=== PATIENT | female | born 1965 | race Caucasian/White ===

== ENCOUNTER 2019-04-06 12:30 | Outpatient (RCR) | payer MEDICAID, SELFPAY ==
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
--- NOTE | 2019-04-24 09:10 | HP.PTDCNRP_ITS ---
HP - Discharge Summary (1) - Patient Information DIOGO OTTO was seen in my office for initial evaluation on 04/01/19. The following Plan of Care was established for this patient: Initial Frequency: 2-3x /Week Initial Duration: 4-6 Weeks - Anticipated Interventions Patient/Client Instruction: Educate patient on: Condition, Plan of Care, Risk Factors, Benefits of Fitness Program For the Purpose of:: To improve self management Therapeutic Exercise to Include: Strength training, Body mechanics, Postural training, Flexibilty training, In an aquatic setting, Dynamic Lumbar Stabiliza tion For the Purpose of:: To decrease pain, To increase ROM, To improve muscle performance and motor function, To increase tolerance to activity/condition/position, To improve ability of physical actions for home/community/work/leisure This patient was last seen in our office . Pertinent comments regarding their Physical therapy will appear below: This patient has not returned to Physical Therapy and is appropriate to return to MD for further follow-up as needed. At this point I will be discontinuing this patient from physical therapy. I would be happy to see this patient again in the future if found appropriate by the physician. Thank you! Cara Morrison, PT, Cert MDT
== END 2019-04-06 19:00 | disposition home or self-care (01) ==
LOC: PT 12:30
PROVIDERS: Family Provider Family Medicine; PCP Family Medicine; Referring Provider Family Medicine; Visit Provider Family Medicine
DX: M47.817 Spondylosis without myelopathy or radiculopathy, lumbosacral region (principal)
CPT/HCPCS: 97113; 97162; 97530

== ENCOUNTER 2019-07-07 08:50 | Outpatient (RCR) | payer MEDICAID, SELFPAY ==
--- NOTE | 2019-07-07 10:00 | HP.PTEVAL_ITS ---
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 Date of Evaluation: 07/07/19 Physical Therapist: Garcia Ferris, PT, Cert MDT, OCS - Visit Plan Frequency: 2x /Week Duration: 4 Weeks Plan: PT INTERVENTION GRADED ROM/STRENGTH QUADS/HAMS,DLS,POSURAL EX'S ,ENDURANCE PROGRAM,MODALITIES FOR PAIN RELEIVE - Subjective Findings: This 53 y/o female presenst to physical therapy with low back pain and left knee pain. Patient has had back and kness pain for many years. Aggravating factors knee/back walking,stairs,bending,standing,sitting. Unable to squat /kneel and difficultly with stairs. Patient c/o parathesia/tingling left leg . Bowel/bladder-. Coughing/sneezing -. Patient seen DR for knee and is canditate for knee replacement. Symptoms affects sleeping. Patient tried water but unable due to difficulty . Patienthad x-rays. Tried cortizone knee. SOCAIL: seperated. VOCATION: disablity - Pain Bilateral Back Pain Intensity (Out of 10): 8 Pain Intensity Range: 10 Left Knee Pain Intensity (Out of 10): 6 Pain Intensity Range: 10 - Objective POSTURE: mild foward posture,hips/flexed foward. PALAPTION: tender global knee,SI. NEURO: c/o parathesia /tingling left leg ,reflexes L3-4,L4-5,L5-S1. GAIT: ambulates short distance antalgic gait unsteady waddle gait. BALANCE: fair+. STAIRS: difficulty with one rail. MMT: RIGHT 4/5 quads/hams ,LEFT 4- /5,hip flexion right 4-/5,left 3+/5. FLEXABLITY: mod hams flexablity ,piriformis mod. LUMBAR ROM: flexion mod loss,side glides severe left pain ,min right,extension severe loss. AROM: 5-110 supine R,left 5-100 degrees supine flexion - Special Tests L/S Slump test left side: Negative L/S Slump test right side: Negative Lumbar Standing: Flexion - Mechanical Response: No effect Lumbar Standing: Flexion - Symptoms During Testing: Increases Lumbar Standing: Flexion - Symptoms After Testing: Worse Lumbar Standing: Extension - Mechanical Response: No effect Lumbar Standing: Extension - Symptoms During Testing: Increases Lumbar Standing: Extension - Symptoms After Testing: Worse Lumbar Standing: Right Side Glides - Mechanical Response: No effect Lumbar Standing: Right Side [place] - Symptoms During Testing: No effect Lumbar Standing: Right Side [place] - Symptoms After Testing: No effect Lumbar Standing: Left Side [place] - Mechanical Response: No effect Lumbar Standing: Left Side [place] - Symptoms During Testing: Increases Lumbar Standing: Left Side [place] - Symptoms After Testing: Worse - Goals Goal 1:: Independant with HEP Goal Time Frame: 4-6 Weeks Goal 2:: Improve gait with increase distance and QOL of gait with less pain. Goal Time Frame: 4-6 Weeks Goal 3:: Patient decrease L-S and knee left by 40% > to improve function. Goal Time Frame: 4-6 Weeks Goal 4:: Patient to improve lumbar ROM for function of recovery Goal Time Frame: 4-6 Weeks Goal 5:: Patient increase strength quads/hams 4/5 to improve function with gait Goal Time Frame: 4-6 Weeks Goal 6:: Patient to improve back owestry score by 4 points or> to improve QOL. Goal Time Frame: 4-6 Weeks - Rehabilitation Potential Physical Therapy Diagnosis: This patient has L-S pain and left knee pain with poor ROM,strength knee,poor function of recovery and impairs gait short ditances thus benifit from skilled PT Rehabilitation Potential: Good - Anticipated Interventions Patient/Client Instruction: Educate patient on: Condition, Plan of Care For the Purpose of:: To decrease pain, To increase ROM, To improve muscle performance and motor function, To improve ability to perform ADL's, To increase tolerance to activity/condition/position, To improve ability of physical actions for home/community/work/leisure, To improve health of tissue, To decrease soft tissue restriction, To increase flexibility/ROM, To reduce risk of recurrence, To improve ability to perform tasks related to life management Therapeutic Exercise to Include: Strength training, Body mechanics, Postural training, Flexibilty training, Dynamic Lumbar Stabilization Comment: QUADS/HAMS For the Purpose of:: To decrease pain, To increase ROM, To improve muscle performance and motor function, To improve ability to perform ADL's, To improve performance and independence with ADL's, To improve ability of physical actions for home/community/work/leisure, To improve gait and locomotor functions, To improve health of tissue, To decrease soft tissue restriction, To increase flexibility/ROM, To improve ability to perform tasks related to life management TENS: Yes IF ES: Yes Cryotherapy (ice pack, ice massage): Yes Thermo therapy (hot pack): Yes Ultrasound (thermal/non thermal): Yes For the Purpose of:: To decrease pain, To increase ROM, To improve nutrient delivery to tissue, To increase oxygenation perfusion, To improve health of tissue, To decrease soft tissue restriction Thank you for the opportunity to evaluate your patient. For Medicare and Medicare HMO plans, please review the plan of care and approve it. It will need to be FAXED BACK to us at [phone] for Medicare purposes. For Medicare only, by signing this I certify the plan of care. Please let me know if there are questions or concerns regarding this plan of care. Physician Signature: Date:
--- NOTE | 2019-08-27 15:57 | HP.PTDCNRP_ITS ---
HP - Discharge Summary (1) - Patient Information DIOGO OTTO was seen in my office for initial evaluation on 07/07/19. The following Plan of Care was established for this patient: Initial Frequency: 2x /Week Initial Duration: 4 Weeks - Anticipated Interventions Patient/Client Instruction: Educate patient on: Condition, Plan of Care For the Purpose of:: To decrease pain, To increase ROM, To improve muscle per formance and motor function, To improve ability to perform ADL's, To increase tolerance to activity/condition/position, To improve ability of physical actions for home/community/work/leisure, To improve health of tissue, To decrease soft tissue restriction, To increase flexibility/ROM, To reduce risk of recurrence, To improve ability to perform tasks related to life management Therapeutic Exercise to Include: Strength training, Body mechanics, Postural training, Flexibilty training, Dynamic Lumbar Stabilization For the Purpose of:: To decrease pain, To increase ROM, To improve muscle performance and motor function, To improve ability to perform ADL's, To improve performance and independence with ADL's, To improve ability of physical actions for home/community/work/leisure, To improve gait and locomotor functions, To improve health of tissue, To decrease soft tissue restriction, To increase flexibility/ROM, To improve ability to perform tasks related to life management TENS: Yes IF ES: Yes Cryotherapy (ice pack, ice massage): Yes Thermo therapy (hot pack): Yes Ultrasound (thermal/non thermal): Yes For the Purpose of:: To decrease pain, To increase ROM, To improve nutrient delivery to tissue, To increase oxygenation perfusion, To improve health of tissue, To decrease soft tissue restriction This patient was last seen in our office 07/14/19. Pertinent comments regarding their Physical therapy will appear below: Patient seen for PT for Intial PT eval for HEP. At this point I will be discontinuing this patient from physical therapy. I would be happy to see this patient again in the future if found appropriate by the physician. Thank you! Garcia Ferris, PT, Cert MDT, OCS
== END 2019-07-07 19:00 | disposition home or self-care (01) ==
LOC: PT 08:50
PROVIDERS: Family Provider Family Medicine; PCP Family Medicine; Visit Provider Family Medicine
DX: M47.817 Spondylosis without myelopathy or radiculopathy, lumbosacral region (principal); M17.12 Unilateral primary osteoarthritis, left knee
CPT/HCPCS: 97110; 97162

== ENCOUNTER → 2020-08-30 10:41 | Outpatient (CLI) | payer MEDICAID, SELFPAY | PROVIDERS: PCP Family Medicine; Referring Provider Family Medicine; Visit Provider Family Medicine | DX: J45.41 Moderate persistent asthma with (acute) exacerbation (principal); Z20.828 Contact with and (suspected) exposure to other viral communicable diseases | CPT/HCPCS: 87635; C9803; U0003 ==

== ENCOUNTER 2022-03-12 18:25 | Observation (INO) | payer MEDICAID, SELFPAY ==
[2022-03-12] VITALS (9 sets, daily range): BP systolic 161–171; BP diastolic 81–89; PULSE 81–88; RESP 19–21; TEMP 36.7–37.1; O2SAT 83–98; BMI 58.3
--- NOTE | 2022-03-12 19:32 | EKG12_ITS ---
Test Reason : EDEMA Blood Pressure : / mmHG Vent. Rate : 083 BPM Atrial Rate : 083 BPM P-R Int : 168 ms QRS Dur : 088 ms QT Int : 384 ms P-R-T Axes : 057 059 059 degrees QTc Int : 451 ms Normal sinus rhythm Borderline Low voltage QRS Confirmed by SERG CAMP, LAURA ([id number]), editor farm journal MIKAELA FLAHERTY ([id number]) on 03/14/2022 10:35:20 AM Referred By: ELEONORA Confirmed By:LAURA ULRICH MD
--- NOTE | 2022-03-12 19:48 | RAD_ITS ---
EXAM: XR CHEST, 1 VIEW CLINICAL INDICATION: dyspnea TECHNIQUE: Frontal view of the chest. This report was created using [employer] report generation technology. COMPARISON: 03/11/2014. FINDINGS: LUNGS AND PLEURAL SPACES: Small area of hazy increased density right lower lung just below the right minor fissure. No pneumothorax. No effusion. HEART: Unremarkable. Cardiac silhouette not enlarged. MEDIASTINUM: Central airways and mediastinal contour are unremarkable. BONES/JOINTS: Unremarkable. SOFT TISSUES: Unremarkable. RAD/Chest 1 View (Portable) IMPRESSION: Question of a small area of consolidation/pneumonia right lower lobe. Electronically Signed: Carl Hinton MD at 20:24 EDT ,
[2022-03-12 19:50] LABS: Absolute Lymphocyte Count 1.69 X10^3/uL (0.83-4.51); Absolute Neutrophil Count 7.2 X10^3/uL (2.0-7.7); Basophil# 0.05 X10^3/uL; Basophil% 0.5 % (0-1); Eosinophil# 0.06 X10^3/uL; Eosinophils% 0.6 % (0-5); Hematocrit 36.8 % (37-47); Hemoglobin 10.8 g/dL (12.0-15.0); Lymphocyte # 1.69 X10^3/ul (0.83-4.51); Lymphocyte % 17.1 % (19-41); Mean Corp Hgb Conc 29.3 g/dL (32-36); Mean Corpuscular Hgb 24.2 pg (27.0-32.0); Mean Corpuscular Volume 82.5 fL (81-99); Mean Platelet Vol. 10.8 fl (6.2-12.0); Monocyte# 0.89 X10^3/uL; NRBC Flagged by Analyzer 0.2 % (0-5); Neutrophil # 7.15 X10^3/uL (2.7-7.7); Neutrophil % 72.2 % (47-70); Platelet Count 170 K/mm3 (150-450); RBC Distribution Width CV 15.6 % (11.6-14.6); RBC Distribution Width SD 47.1 fl (35.1-43.9); Red Blood Count 4.46 M/mm3 (4.2-5.4); White Blood Count 9.9 K/mm3 (4.4-11.0)
[2022-03-12 20:04] LABS: International Normalized Ratio 1.2; Partial Thromboplast Time 30.2 Seconds (24.1-36.2); Prothrombin Time (Protime)PT. 14.7 SECONDS (11.7-14.9)
[2022-03-12 20:13] LABS: ALB/GLOB Ratio 0.8 RATIO (0.9-2.4); AST(SGOT) 11 U/L (15-37); Alanine Aminotransfer ALT/SGPT 30 U/L (13-56); Albumin, Serum 3.1 g/dL (3.2-5.0); Alkaline Phosphatase 83 U/L (45-117); Anion Gap 2 (5-15); BUN 11 mg/dL (7-18); BUN/Creat Ratio 15.2 RATIO (10-20); Calcium,Total 8.8 mg/dL (8.5-10.1); Chloride 102 mmol/L (98-107); Creatinine, Serum 0.72 mg/dL (0.55-1.02); EST Glomerular Filtration Rate 89 mL/min (>60); Est Glom Filt Rate - Afr Amer 108 mL/min (>60); Estimated Creatinine Clearance 76.24 ml/min; Globulin 3.8 g/dL (2.2-4.2); Glucose 164 mg/dL (74-106); Lactic Acid 1.4 mmol/L (0.4-1.9); Potassium 4.3 mmol/L (3.5-5.1); Protein, Total 6.9 g/dL (6.4-8.2); Sodium Level 140 mmol/L (136-145); Troponin-I HS < 3 pg/mL (3.0-54.0)
[2022-03-12 20:27] LABS: BNP,B-Type NATRIURETIC PEPTIDE 20.1 pg/mL (0-100)
[2022-03-12 20:52] LABS: Mucous, Urine 0 SEEN /hpf (<or=2+); Red Blood Cells-Urine 0 SEEN /hpf (0-5); White Blood Cells 0 SEEN /hpf (0-5)
[2022-03-12 20:55] LABS: Color, Urine Yellow (Yellow); Glucose, Dipstick Normal (Normal); Ketone-Dipstick Negative (Negative); Leukocyte Esterase-Dipstick Negative /ul (Negative); Nitrite-Dipstick Negative (Negative); Occult Blood-Urine Negative /ul (Negative); Protein-Dipstick 15 mg/dl (Negative); Urine Bilirubin Dipstick Negative (Negative); Urine Urobilinogen 4 mg/dl (Normal)
[2022-03-12 20:58] LABS: Urine Clarity Clear (Clear)
[2022-03-12 21:03] LABS: Bacteria 1+ /hpf (None Seen); Squamous Epithelial Cells - UA 0-5 SEEN /hpf (5-10)
[2022-03-12] MEDS: Furosemide 100 MG/10 ML Vial 80 MG IV (21:03)
--- NOTE | 2022-03-12 21:08 | CT_ITS ---
EXAM: CT ANGIOGRAPHY CHEST WITHOUT AND WITH INTRAVENOUS CONTRAST CLINICAL INDICATION: pulmonary embolism TECHNIQUE: Helically acquired angiography images were obtained of the chest without and with intravenous contrast. This CT exam was performed using one or more of the following dose reduction techniques: automated exposure control, adjustment of the mA and/or kV according to patient size, and/or use of iterative reconstruction technique. This report was created using [employer] report generation technology. MIP reconstructed images were created and reviewed. CONTRAST: IV 100mL [id number] RADIATION DOSE: CTDIvol = 11.47 mGy, DLP = 544.21 mGy-cm. COMPARISON: None. FINDINGS: PULMONARY ARTERIES: Unremarkable. Normal in caliber. No evidence of pulmonary embolism. AORTA: Unremarkable. Normal in caliber. No evidence of dissection. GREAT VESSELS OF AORTIC ARCH: Unremarkable. Normal in caliber. No evidence of dissection. LUNGS AND PLEURAL SPACES: Small patchy areas of consolidation in the right upper and middle lobes and moderate consolidation in the right posterior costophrenic sulcus. No mass. No pleural effusion or thickening. No pneumothorax. HEART: Unremarkable. Heart size is normal. No pericardial effusion. No signs of right heart strain, ratio of right ventricle to left ventricle measures less than 1. MEDIASTINUM: Unremarkable. No mediastinal or hilar adenopathy. Esophagus is unremarkable. No hiatal hernia. THYROID: Unremarkable. No thyroid lesions. BONES/JOINTS: Unremarkable. No suspicious lytic or blastic abnormality. CT/CTA Chest W/WO Contrast IMPRESSION: 1. No PE or dissection. 2. Patchy areas of consolidation in the right upper and middle lobes and moderate consolidation in the right posterior costophrenic sulcus likely pneumonia. Electronically Signed: Carl Hinton MD at 21:58 EDT ,
--- NOTE | 2022-03-12 21:09 | EX.ED.DYSGE1 ---
HPI History of Present Illness Chief Complaint: Edema Informant: patient Narrative Narrative: 56-year-old female presenting to the emergency department with bilateral leg swelling and shortness of breath. Patient denies any known cardiac history. She states that she has had swelling in her legs before. She notes pain in the left leg in the popliteal region. There is some additional swelling in this area but it appears to be more edematous. She does wear home oxygen at night but does not have long tubing for the day. Coming into triage she is 83% on room air. On 3 L she is 95% at rest. She notes that she is able to lay on her side at night. Attempting to stand at the bedside she again becomes hypoxic into the 80s. She denies any chest pain. [facility] Medical History (Updated 03/12/22 @ 22:[address] Chris Downing, ) Diabetes Hypercholesterolemia Hypertension Hypothyroidism Home Medications Lasix 20 mg PO DAILY PRN PRN 01/09/14 [History Last Taken 01/09/14] albuterol sulfate [Ventolin HFA] 1 - 2 puff INHALATION Q4H PRN PRN #1 inhaler 01/09/14 [Rx Last Taken Unknown] albuterol sulfate [Ventolin Hfa] 2 inh IH TID PRN 01/09/14 [History Last Taken 01/09/14] fluticasone propionate [Flovent 110 Mcg] 1 inh IH BID 01/09/14 [History Last Taken 01/09/14 19:55] levothyroxine 50 mcg PO DAILY 01/09/14 [History Last Taken 01/09/14] omeprazole 20 mg PO DAILY 01/09/14 [History Last Taken 01/09/14] oxycodone-acetaminophen [Percocet 10-325 mg Tablet] 1 tab PO TID PRN PRN 01/09/14 [History Last Taken Unknown] amlodipine 5 mg PO DAILY 03/12/22 [History Last Taken Unknown] budesonide-formoterol [Symbicort] 2 puff INHALATION BID 03/12/22 [History Last Taken Unknown] glucosamine HCl 500 mg PO DAILY 03/12/22 [History Last Taken Unknown] metformin 1,000 mg PO BID 03/12/22 [History Last Taken Unknown] montelukast 10 mg PO DAILY 03/12/22 [History Last Taken Unknown] polyethylene glycol 3350 [Miralax] 17 g PO DAILY PRN PRN 03/12/22 [History Last Taken Unknown] simvastatin 20 mg PO DAILY 03/12/22 [History Last Taken Unknown] tizanidine 4 - 8 mg PO Q8H 03/12/22 [History Last Taken Unknown] Allergy/AdvReac Type Severity Reaction Status Date / Time benzonatate AdvReac Mild Itching Verified 03/12/22 18:26 [From Zarina Mac] ERTHROMYCIN AdvReac Mild Upset Uncoded 03/12/22 18:26 Stomach Social History (Updated 03/12/22 @ 21:[address] Chris Downing, DO) Smoking Status: Current every day smoker tobacco type: cigarettes substance use type: does not use ROS ROS ED Constitutional Constitutional ED: Denies chills, fever(s) or weight loss Eyes Eyes: Denies change in vision or diplopia ENT ENT ED: Denies ear pain, rhinorrhea or sore throat Cardiovascular Cardiovascular: Denies chest pain, orthopnea, palpitations or racing heartbeat Respiratory/Chest Respiratory/Chest: Reports dyspnea and dyspnea on exertion; Denies cough or orthopnea Gastrointestinal Gastrointestinal: Denies abdominal pain, diarrhea, nausea or vomiting Genitourinary Genitourinary ED: Denies dysuria, hematuria or urinary frequency Musculoskeletal Musculoskeletal: Reports other Details: Bilateral lower leg swelling ; Denies arthralgias or myalgias Integumentary Denies abscess or rash Neurologic Neurologic: Denies headache(s) or weakness Psychiatric Psychiatric: Denies anxiety, depression, suicidal ideation or suicidal thoughts Endocrine Endocrinology: Denies polydipsia, polyphagia or polyuria Allergic/Immunologic Allergic/Immunologic ED: Denies mouth swelling, tongue swelling or urticaria EXAM Physical Exam Const Vital Signs: 03/12/22 18:26 03/12/22 18:31 03/12/22 18:56 Temperature 98.8 F 98.8 F Temperature Source Temporal Temporal Pulse Rate 88 88 Respiratory Rate 20 H 20 H Respiratory Effort Short of Breath Respiratory Pattern Normal Blood Pressure 167/81 H 167/81 H Blood Pressure Mean 109 109 Pulse Ox 83 83 Oxygen Delivery Method Room Air Room Air Oxygen Flow Rate (L/min) 03/12/22 19:31 03/12/22 21:05 03/12/22 22:00 Temperature 98.8 F 98.1 F Temperature Source Temporal Temporal Pulse Rate 88 81 Respiratory Rate 20 H 21 H Respiratory Effort Respiratory Pattern Blood Pressure 167/81 H 171/82 H Blood Pressure Mean 109 111 Pulse Ox 94 92 98 Oxygen Delivery Method Nasal Cannula Nasal Cannula Nasal Cannula Oxygen Flow Rate (L/min) 2 3 2 03/12/22 22:56 Temperature Temperature Source Pulse Rate Respiratory Rate Respiratory Effort Respiratory Pattern Blood Pressure Blood Pressure Mean Pulse Ox 97 Oxygen Delivery Method Nasal Cannula Oxygen Flow Rate (L/min) 3 Positive well nourished, well developed and obese General Appearance ED: well developed Nutritional Appearance: obese HEENT Reports normocephalic, head/scalp atraumatic and moist mucous membranes Negative for trauma Tympanic Membrane ED: Yes TM's clear Eyes PERRL and EOMs intact bilaterally Neck no lymphadenopathy, supple and no JVD Resp clear to auscultation bilaterally Resp Narrative: Patient is mildly tachypneic Cardio regular rate, regular rhythm and no murmurs GI normal to inspection, nondistended, normoactive bowel sounds and non-tender Palpation: soft Back/Spine no CVA tenderness and normal ROM Extremity Extremity Narrative: There is significant swelling of the bilateral extremities up onto the thighs. In the left calf muscles region there appears to be more swelling than on the right and the area is tender. I do not appreciate significant erythema or anything obviously abscessed. General Extremety ED: Yes edema General Extremity: edema Neuro oriented x3 and CN's II-XII intact bilaterally Sensorium / Orientation: alert Motor Exam: strength 5/5 throughout Psych mental status grossly normal Mood & Affect: Negative for depressed or tearful Skin no rashes or lesions noted and no wounds MDM MDM MDM Narrative Medical decision making narrative: Basic blood work was obtained. White count is 9.9 72.2 neutrophils. Lactic acid is normal at 1.4 beta natruretic peptide 20.1. Urinalysis shows 1+ bacteria but no overt infection negative nitrate leukocyte esterase. Creatinine normal at 0.72. My interpretation of the chest x-ray is questionable infiltrate on the right. CTA of the chest shows multifocal areas of infiltrate. She received 80 mg of Lasix as well as supplemental oxygen. Patient was not ambulated as she becomes hypoxic just standing at the bedside. She needs to get more appropriate tubing to be able to wear oxygen around her house. We were able to do this but even on 5 L when the patient attempted to ambulate she becomes hypoxic so knowing that she has an extended tubing that the oxygen flow will be less on the receiving and think it is more appropriate to admit her. She also received Rocephin azithromycin after blood cultures were obtained. Lab Data Attestation: I reviewed the patient's lab results. Labs: Laboratory Results - last 24 hr 03/12/22 03/12/22 03/12/22 19:42 19:42 19:42 WBC 9.9 RBC 4.46 Hgb 10.8 L Hct 36.8 L MCV 82.5 MCH 24.2 L MCHC 29.3 L RDW Std Deviation 47.1 H RDW Coeff of Swathi 15.6 H Plt Count 170 MPV 10.8 Immature Gran % (Auto) 0.600 Neut % (Auto) 72.2 H Lymph % (Auto) 17.1 L Saline % (Auto) 9.0 Eos % (Auto) 0.6 Baso % (Auto) 0.5 Absolute Neuts (auto) 7.2 Absolute Lymphs (auto) 1.69 Nucleated RBC % 0.2 PT 14.7 INR 1.2 APTT 30.2 Sodium 140 Potassium 4.3 Chloride 102 Carbon Dioxide 36.0 H Anion Gap 2 L BUN 11 Creatinine 0.72 Estim Creat Clear Calc 76.24 Est GFR (MDRD) Af Amer 108 Est GFR (MDRD) Non-Af 89 BUN/Creatinine Ratio 15.2 Glucose 164 H Lactic Acid Calcium 8.8 Total Bilirubin 0.40 AST 11 L ALT 30 Alkaline Phosphatase 83 Troponin I High Sens < 3 L B-Natriuretic Peptide Total Protein 6.9 Albumin 3.1 L Globulin 3.8 Albumin/Globulin Ratio 0.8 L Urine Color Urine Clarity Urine pH Ur Specific [place] Urine Protein Urine Glucose (UA) Urine Ketones Urine Occult Blood Urine Nitrite Urine Bilirubin Urine Urobilinogen Ur Leukocyte Esterase Urine RBC Urine WBC Ur Squamous Epith Cells Urine Bacteria Urine Mucus 03/12/22 03/12/22 03/12/22 19:42 19:42 20:17 WBC RBC Hgb Hct MCV MCH MCHC RDW Std Deviation RDW Coeff of Swathi Plt Count MPV Immature Gran % (Auto) Neut % (Auto) Lymph % (Auto) Saline % (Auto) Eos % (Auto) Baso % (Auto) Absolute Neuts (auto) Absolute Lymphs (auto) Nucleated RBC % PT INR APTT Sodium Potassium Chloride Carbon Dioxide Anion Gap BUN Creatinine Estim Creat Clear Calc Est GFR (MDRD) Af Amer Est GFR (MDRD) Non-Af BUN/Creatinine Ratio Glucose Lactic Acid 1.4 Calcium Total Bilirubin AST ALT Alkaline Phosphatase Troponin I High Sens B-Natriuretic Peptide 20.1 Total Protein Albumin Globulin Albumin/Globulin Ratio Urine Color Yellow Urine Clarity Clear Urine pH 8.0 Ur Specific [place] 1.010 Urine Protein 15 H Urine Glucose (UA) Normal Urine Ketones Negative Urine Occult Blood Negative Urine Nitrite Negative Urine Bilirubin Negative Urine Urobilinogen 4 H Ur Leukocyte Esterase Negative Urine RBC 0 SEEN Urine WBC 0 SEEN Ur Squamous Epith Cells 0-5 SEEN Urine Bacteria 1+ Urine Mucus 0 SEEN Radiography Diagnostic Testing: Clinical Impression(s) from Imaging Studies Chest X-Ray 03/12/22 19:48 IMPRESSION: Question of a small area of consolidation/pneumonia right lower lobe. Electronically Signed: Carl Hinton MD at 20:24 EDT , Chest CTA 03/12/22 21:08 IMPRESSION: 1. No PE or dissection. 2. Patchy areas of consolidation in the right upper and middle lobes and moderate consolidation in the right posterior costophrenic sulcus likely pneumonia. Electronically Signed: Carl Hinton MD at 21:58 EDT , EKG Initial EKG: Attestation: I personally reviewed and interpreted this EKG as follows: Comments: Normal sinus rhythm with a ventricular rate of 83 bpm. No concerning features of ACS or ectopy noted Discharge Plan Dx/Rx/DC Orders Clinical Impression: Lymphedema, Pneumonia, Acute hypoxemic respiratory failure Disposition Disposition: Acute Care [facility]
[2022-03-12] MEDS: Ceftriaxone 1 GM/50 ML BAG IV (22:22)
--- NOTE | 2022-03-12 23:04 | PCM.HP.STD ---
HPI - General HPI Narrative DIOGO OTTO, is a 56 F who presents to the emergency room with acute shortness of breath. Patient has a chronic history of COPD and is on 3 L of oxygen at home routinely ,however, today she was unable to maintain her oxygenation with activity above 90%. Despite turning oxygen to 5 L by nasal cannula patient was still unable to maintain her oxygenation greater than 90% with ambulation. CT scan is positive for patchy pneumonia in the right side and white blood cell count is within normal limits and patient is afebrile. Patient also complains of increased fluid retention with lower extremity edema and has been given a dose of Lasix here in the emergency room. Her BNP was negative. [facility] Medical History (Updated 03/12/22 @ 22:[address] Chris Downing, ) Diabetes Hypercholesterolemia Hypertension Hypothyroidism Home Medications Lasix 20 mg PO DAILY PRN PRN 01/09/14 [History Last Taken 01/09/14] albuterol sulfate [Ventolin HFA] 1 - 2 puff INHALATION Q4H PRN PRN #1 inhaler 01/09/14 [Rx Last Taken Unknown] albuterol sulfate [Ventolin Hfa] 2 inh IH TID PRN 01/09/14 [History Last Taken 01/09/14] fluticasone propionate [Flovent 110 Mcg] 1 inh IH BID 01/09/14 [History Last Taken 01/09/14 19:55] levothyroxine 50 mcg PO DAILY 01/09/14 [History Last Taken 01/09/14] omeprazole 20 mg PO DAILY 01/09/14 [History Last Taken 01/09/14] oxycodone-acetaminophen [Percocet 10-325 mg Tablet] 1 tab PO TID PRN PRN 01/09/14 [History Last Taken Unknown] amlodipine 5 mg PO DAILY 03/12/22 [History Last Taken Unknown] budesonide-formoterol [Symbicort] 2 puff INHALATION BID 03/12/22 [History Last Taken Unknown] glucosamine HCl 500 mg PO DAILY 03/12/22 [History Last Taken Unknown] metformin 1,000 mg PO BID 03/12/22 [History Last Taken Unknown] montelukast 10 mg PO DAILY 03/12/22 [History Last Taken Unknown] polyethylene glycol 3350 [Miralax] 17 g PO DAILY PRN PRN 03/12/22 [History Last Taken Unknown] simvastatin 20 mg PO DAILY 03/12/22 [History Last Taken Unknown] tizanidine 4 - 8 mg PO Q8H 03/12/22 [History Last Taken Unknown] Allergy/AdvReac Type Severity Reaction Status Date / Time benzonatate AdvReac Mild Itching Verified 03/12/22 18:26 [From Zarina Mac] ERTHROMYCIN AdvReac Mild Upset Uncoded 03/12/22 18:26 Stomach Social History (Updated 03/12/22 @ 21:[address] Chris Downing, DO) Smoking Status: Current every day smoker tobacco type: cigarettes substance use type: does not use ROS Constitutional Constitutional: Denies chills or fever(s) Eyes Eyes: Denies blurry vision ENT HEENT: Denies abnormal hearing Cardiovascular Cardiovascular: Denies chest pain Respiratory/Chest Respiratory/Chest: Reports shortness of breath at rest Gastrointestinal Gastrointestinal: Denies abdominal pain Genitourinary Genitourinary: Denies dysuria Musculoskeletal Musculoskeletal: Denies back pain Integumentary Integumentary: Denies dry skin Neurologic Neurologic: Denies abnormal gait Psychiatric Psychiatric: Denies anxiety Vital Signs Vital Signs Vital Signs: 03/12/22 18:26 03/12/22 18:31 03/12/22 18:56 Temperature 98.8 F 98.8 F Temperature Source Temporal Temporal Pulse Rate 88 88 Respiratory Rate 20 H 20 H Respiratory Effort Short of Breath Respiratory Pattern Normal Blood Pressure 167/81 H 167/81 H Blood Pressure Mean 109 109 Pulse Ox 83 83 Oxygen Delivery Method Room Air Room Air Oxygen Flow Rate (L/min) 03/12/22 19:31 03/12/22 21:05 03/12/22 22:00 Temperature 98.8 F 98.1 F Temperature Source Temporal Temporal Pulse Rate 88 81 Respiratory Rate 20 H 21 H Respiratory Effort Respiratory Pattern Blood Pressure 167/81 H 171/82 H Blood Pressure Mean 109 111 Pulse Ox 94 92 98 Oxygen Delivery Method Nasal Cannula Nasal Cannula Nasal Cannula Oxygen Flow Rate (L/min) 2 3 2 03/12/22 22:56 Temperature Temperature Source Pulse Rate Respiratory Rate Respiratory Effort Respiratory Pattern Blood Pressure Blood Pressure Mean Pulse Ox 97 Oxygen Delivery Method Nasal Cannula Oxygen Flow Rate (L/min) 3 Weight Weight: 340 lb Body Mass Index (BMI) 58.3 Physical Exam Const oriented x3 General Appearance: cooperative HEENT normocephalic and head/scalp atraumatic Eyes PERRL Neck supple Lymph Lymphatic: no lymphadenopathy noted Resp Auscultation: rhonchi upper bilaterally Cardio regular rate, regular rhythm, S1 normal heart sound, S2 normal heart sound and no murmurs GI normal to inspection, nondistended, normoactive bowel sounds Extremity no clubbing, cyanosis or edema Skin General Skin Exam: turgor normal Neuro CN's II-XII intact bilaterally Psych affect normal Results Lab / Micro Data Result Diagrams: 03/12/22 19:42 03/12/22 19:42 Labs: Laboratory Results - last 24 hr 03/12/22 19:42: WBC 9.9, RBC 4.46, Hgb 10.8 L, Hct 36.8 L, MCV 82.5, MCH 24.2 L, MCHC 29.3 L, RDW Std Deviation 47.1 H, RDW Coeff of Swathi 15.6 H, Plt Count 170, MPV 10.8, Immature Gran % (Auto) 0.600, Neut % (Auto) 72.2 H, Lymph % (Auto) 17.1 L, [place] % (Auto) 9.0, Eos % (Auto) 0.6, Baso % (Auto) 0.5, Absolute Neuts (auto) 7.2, Absolute Lymphs (auto) 1.69, Nucleated RBC % 0.2 03/12/22 19:42: PT 14.7, INR 1.2, APTT 30.2 03/12/22 19:42: Sodium 140, Potassium 4.3, Chloride 102, Carbon Dioxide 36.0 H, Anion Gap 2 L, BUN 11, Creatinine 0.72, Estim Creat Clear Calc 76.24, Est GFR (MDRD) Af Amer 108, Est GFR (MDRD) Non-Af 89, BUN/Creatinine Ratio 15.2, Glucose 164 H, Calcium 8.8, Total Bilirubin 0.40, AST 11 L, ALT 30, Alkaline Phosphatase 83, Troponin I High Sens < 3 L, Total Protein 6.9, Albumin 3.1 L, Globulin 3.8, Albumin/Globulin Ratio 0.8 L 03/12/22 19:42: Lactic Acid 1.4 03/12/22 19:42: B-Natriuretic Peptide 20.1 03/12/22 20:17: Urine Color Yellow, Urine Clarity Clear, Urine pH 8.0, Ur Specific [place] 1.010, Urine Protein 15 H, Urine Glucose (UA) Normal, Urine Ketones Negative, Urine Occult Blood Negative, Urine Nitrite Negative, Urine Bilirubin Negative, Urine Urobilinogen 4 H, Ur Leukocyte Esterase Negative, Urine RBC 0 SEEN, Urine WBC 0 SEEN, Ur Squamous Epith Cells 0-5 SEEN, Urine Bacteria 1+, Urine Mucus 0 SEEN Radiology Impression Chest X-Ray 03/12/22 19:48 IMPRESSION: Question of a small area of consolidation/pneumonia right lower lobe. Electronically Signed: Carl Hinton MD at 20:24 EDT , Chest CTA 03/12/22 21:08 IMPRESSION: 1. No PE or dissection. 2. Patchy areas of consolidation in the right upper and middle lobes and moderate consolidation in the right posterior costophrenic sulcus likely pneumonia. Electronically Signed: Carl Hinton MD at 21:58 EDT , Assessment & Plan Assessment/Plan (1) Pneumonia: (2) Acute hypoxemic respiratory failure: (3) Diabetes: (4) Hypercholesterolemia: (5) Hypothyroidism: (6) Hypertension: PLAN: 1. Hypoxia secondary to obesity and possible pneumonia patient will be admitted for observation with continuous oxygen per protocol, DuoNeb breathing treatments every 4 hours as needed, Levaquin 500 mg IV daily. Patient does have oxygen equipment at home and will need replacement tubing for discharge anticipated tomorrow. 2. Diabetes?continue home medications 3. Hypercholesterolemia?continue statin medication 4. Hypothyroidism?continue Synthroid 5. DVT prophylaxis?low molecular weight heparin Charges/Coding Visit Charges OBSV E&M: 24676 Initial observation care L2
[2022-03-13] VITALS (10 sets, daily range): BP systolic 117–150; BP diastolic 56–76; PULSE 72–89; RESP 16–20; TEMP 36.8–37.1; O2SAT 87–97; BMI 57.4
[2022-03-13] MEDS: Ipratropium/Albuterol Sulfate 3 ML AMPUL.NEB INHALATION ×3 (01:12→10:34)
[2022-03-13] MEDS: Levothyroxine 50 MCG Tablet PO (04:38)
[2022-03-13] MEDS: 0.9% Saline Lock 10 ML Syringe IV ×2 (04:41→09:26)
[2022-03-13 05:50] LABS: Absolute Neutrophil Count 6.4 X10^3/uL (2.0-7.7); Basophil# 0.05 X10^3/uL; Basophil% 0.6 % (0-1); Eosinophil# 0.09 X10^3/uL; Hematocrit 35.7 % (37-47); Hemoglobin 10.6 g/dL (12.0-15.0); Lymphocyte % 16.9 % (19-41); Mean Corp Hgb Conc 29.7 g/dL (32-36); Mean Corpuscular Hgb 24.1 pg (27.0-32.0); Mean Corpuscular Volume 81.3 fL (81-99); Mean Platelet Vol. 11.5 fl (6.2-12.0); NRBC Flagged by Analyzer 0 % (0-5); Platelet Count 161 K/mm3 (150-450); RBC Distribution Width CV 15.6 % (11.6-14.6); RBC Distribution Width SD 46.3 fl (35.1-43.9); Red Blood Count 4.39 M/mm3 (4.2-5.4); White Blood Count 8.9 K/mm3 (4.4-11.0)
[2022-03-13 06:35] LABS: Anion Gap 6 (5-15); BUN 9 mg/dL (7-18); BUN/Creat Ratio 13.4 RATIO (10-20); Calcium,Total 9.2 mg/dL (8.5-10.1); Chloride 98 mmol/L (98-107); Creatinine, Serum 0.67 mg/dL (0.55-1.02); EST Glomerular Filtration Rate 97 mL/min (>60); Est Glom Filt Rate - Afr Amer 117 mL/min (>60); Estimated Creatinine Clearance 81.93 ml/min; Glucose 132 mg/dL (74-106); Potassium 3.3 mmol/L (3.5-5.1); Sodium Level 138 mmol/L (136-145)
[2022-03-13] MEDS: Budesonide Respules 0.5 MG/2 ML AMPUL.NEB. INHALATION (07:22)
[2022-03-13] MEDS: Pantoprazole Sodium 20 MG Tablet PO (07:40)
[2022-03-13] MEDS: Montelukast 10 MG Tablet PO (07:40)
[2022-03-13] MEDS: metFORMIN HCl 1,000 MG Tablet 1000 MG PO (07:41)
[2022-03-13] MEDS: amLODIPine 5 MG Tablet PO (07:41)
--- NOTE | 2022-03-13 07:46 | PN.HOSP_ITS ---
Objective Data Objective Data Vital Signs: Vital Signs Temp Pulse Resp BP Pulse Ox 98.6 F 76 20 H 117/58 L 94 03/13/22 04:42 03/13/22 04:42 03/13/22 04:42 03/13/22 04:42 03/13/22 04:42 Oxygen Flow Rate (L/min) 3 Oxygen Delivery Method Nasal Cannula Weight: 336 lb 6.806 oz Body Mass Index (BMI) 57.4 Intake & Output: Intake and Output for Last 24 Hours 03/11/22 03/12/22 03/13/22 23:59 23:59 23:59 Intake Total 50 / 50 255 / 255 Balance 50 / 50 255 / 255 Lab / Micro Data Result Diagrams: 03/13/22 05:35 03/13/22 05:35 Labs: Laboratory Results - last 24 hr 03/12/22 19:42: WBC 9.9, RBC 4.46, Hgb 10.8 L, Hct 36.8 L, MCV 82.5, MCH 24.2 L, MCHC 29.3 L, RDW Std Deviation 47.1 H, RDW Coeff of Swathi 15.6 H, Plt Count 170, MPV 10.8, Immature Gran % (Auto) 0.600, Neut % (Auto) 72.2 H, Lymph % (Auto) 17.1 L, [place] % (Auto) 9.0, Eos % (Auto) 0.6, Baso % (Auto) 0.5, Absolute Neuts (auto) 7.2, Absolute Lymphs (auto) 1.69, Nucleated RBC % 0.2 03/12/22 19:42: PT 14.7, INR 1.2, APTT 30.2 03/12/22 19:42: Sodium 140, Potassium 4.3, Chloride 102, Carbon Dioxide 36.0 H, Anion Gap 2 L, BUN 11, Creatinine 0.72, Estim Creat Clear Calc 76.24, Est GFR (MDRD) Af Amer 108, Est GFR (MDRD) Non-Af 89, BUN/Creatinine Ratio 15.2, Glucose 164 H, Calcium 8.8, Total Bilirubin 0.40, AST 11 L, ALT 30, Alkaline Phosphatase 83, Troponin I High Sens < 3 L, Total Protein 6.9, Albumin 3.1 L, Globulin 3.8, Albumin/Globulin Ratio 0.8 L 03/12/22 19:42: Lactic Acid 1.4 03/12/22 19:42: B-Natriuretic Peptide 20.1 03/12/22 20:17: Urine Color Yellow, Urine Clarity Clear, Urine pH 8.0, Ur Specific [place] 1.010, Urine Protein 15 H, Urine Glucose (UA) Normal, Urine Ketones Negative, Urine Occult Blood Negative, Urine Nitrite Negative, Urine Bilirubin Negative, Urine Urobilinogen 4 H, Ur Leukocyte Esterase Negative, Urine RBC 0 SEEN, Urine WBC 0 SEEN, Ur Squamous Epith Cells 0-5 SEEN, Urine Bacteria 1+, Urine Mucus 0 SEEN 03/13/22 05:35: WBC 8.9, RBC 4.39, Hgb 10.6 L, Hct 35.7 L, MCV 81.3, MCH 24.1 L, MCHC 29.7 L, RDW Std Deviation 46.3 H, RDW Coeff of Swathi 15.6 H, Plt Count 161, MPV 11.5, Immature Gran % (Auto) 0.500, Neut % (Auto) 72.0 H, Lymph % (Auto) 16.9 L, [place] % (Auto) 9.0, Eos % (Auto) 1.0, Baso % (Auto) 0.6, Absolute Neuts (auto) 6.4, Absolute Lymphs (auto) 1.50, Nucleated RBC % 0 03/13/22 05:35: Sodium 138, Potassium 3.3 L, Chloride 98, Carbon Dioxide 34.0 H, Anion Gap 6, BUN 9, Creatinine 0.67, Estim Creat Clear Calc 81.93, Est GFR (MDRD) Af Amer 117, Est GFR (MDRD) Non-Af 97, BUN/Creatinine Ratio 13.4, Glucose 132 H, Calcium 9.2 Radiography Diagnostic Testing: Radiology Impression Chest X-Ray 03/12/22 19:48 IMPRESSION: Question of a small area of consolidation/pneumonia right lower lobe. Electronically Signed: Carl Hinton MD at 20:24 EDT , Chest CTA 03/12/22 21:08 IMPRESSION: 1. No PE or dissection. 2. Patchy areas of consolidation in the right upper and middle lobes and moderate consolidation in the right posterior costophrenic sulcus likely pneumonia. Electronically Signed: Carl Hinton MD at 21:58 EDT , Physical Exam Narrative Patient came to ER with bilateral leg swelling and shortness of breath. Denies chronic cardiac disease. She also had pain in the left popliteal region and CT angiogram was done which was negative for PE. She was found 83% on room air in ED. She uses home oxygen at night on standing up [place] hypoxic into the 80s. No chest pain. She is on albuterol inhaler and Flovent inhaler at home. General: Alert, Oriented x3, Cooperative, morbid obesity BMI 57.4 kg/m? HEENT: Atraumatic, PERRLA, EOMI, Normocephalic Oral: No Gingival or Mucosal Lesions/ Ulcerations Neck: Supple, No JVD, Negative Carotid Bruits Lungs: Air entry diminished in bilateral lung bases. No crepitation/rhonchi Cardiovascular: Regular rate, Regular Rhythm, Normal S1, Normal S2, No murmurs Abdomen: Bowel Sounds Present, Soft, Non Tender, Non-Distended : No renal angle tenderness. No suprapubic tenderness. Extremities: No edema, Capillary Refill Less than 3 Seconds Skin: No rashes, No breakdown Musculoskeletal: No Tenderness to Palpation of Joints or Extremities Neurological: Cranial nerves II-XII grossly intact, DTR 2+/4 and Symmetrical, Neuro grossly intact Psych/Mental Status: Normal Affect, Appropriate Assessment & Plan Assessment/Plan (1) Pneumonia: (2) Acute hypoxemic respiratory failure: (3) Diabetes: (4) Hypercholesterolemia: (5) Hypothyroidism: (6) Hypertension: PLAN: 1. Hypoxia secondary to obesity and possible pneumonia patient will be admitted for observation with continuous oxygen per protocol, DuoNeb breathing treatments every 4 hours as needed, Levaquin 500 mg IV daily. Patient does have oxygen equipment at home and will need replacement tubing for discharge anticipated tomorrow. Chest x-ray and CT angiogram individually reviewed. Patchy infiltrate in right upper, middle and lower lobe. No PE or aortic dissection. 2. Diabetes?continue home medications 3. Hypercholesterolemia?continue statin medication 4. Hypothyroidism?continue Synthroid 5. DVT prophylaxis?low molecular weight heparin Active Medications Albuterol/Ipratropium (Ipratropium/Albuterol Sulfate 3 Ml Ampul.Neb) 3 ml INHALATION Q4HWA.RT [facility] Last Admin: 03/13/22 07:22 Dose: 3 ml Documented by: Amlodipine Besylate (Amlodipine 5 Mg Tablet) 5 mg PO DAILY [facility] Last Admin: 03/13/22 07:41 Dose: 5 mg Documented by: Atorvastatin Calcium (Atorvastatin Calcium 10 Mg Tablet) 10 mg PO 2200 TORO Budesonide (Budesonide Respules 0.5 Mg/2 Ml Ampul.Neb.) 0.5 mg INHALATION Q12H.RT [facility] Last Admin: 03/13/22 07:22 Dose: 0.5 mg Documented by: Furosemide (Furosemide 20 Mg Tablet) 20 mg PO DAILY PRN PRN PRN Reason: Edema Levofloxacin (Levaquin Iv) 500 mg in 100 mls @ 100 mls/hr IV Q24 TORO Sodium Chloride () 250 mls @ 15 mls/hr IV .[id number] PRN PRN Reason: Saline Flush Sodium Chloride () 250 mls @ 15 mls/hr IV .[id number] PRN PRN Reason: Additional IVPB Infusion Levothyroxine Sodium (Levothyroxine 50 Mcg Tablet) 50 mcg PO 0600 [facility] Last Admin: 03/13/22 04:38 Dose: 50 mcg Documented by: Metformin HCl (Metformin Hcl 1,000 Mg Tablet) 1,000 mg PO BIDCM [facility] Last Admin: 03/13/22 07:41 Dose: 1,000 mg Documented by: Montelukast Sodium (Montelukast 10 Mg Tablet) 10 mg PO DAILY [facility] Last Admin: 03/13/22 07:40 Dose: 10 mg Documented by: Pantoprazole Sodium (Pantoprazole Sodium 20 Mg Tablet) 20 mg PO DAILY [facility] Last Admin: 03/13/22 07:40 Dose: 20 mg Documented by: Polyethylene Glycol (Polyethylene Glycol 3350 17 Gm Packet) 17 gm PO DAILY PRN PRN PRN Reason: stool softner Sodium Chloride (0.9% Saline Lock 10 Ml Syringe) 10 - 40 ml IV UD PRN PRN Reason: SALINE FLUSH Last Admin: 03/13/22 04:41 Dose: 10 ml Documented by:
--- NOTE | 2022-03-13 08:48 | CPS ---
Patient's SPO2 dropped to 84% on room air immediately after removing her home BIPAP machine with 3 LPM O2 bleed in. Placed on 3L nasal cannula.
[2022-03-13] MEDS: levoFLOXacin IV 500 MG/100 ML BAG 100 MG IV (09:24)
--- NOTE | 2022-03-13 09:40 | CASEMGMT ---
MACI GARZA Assessment: Face to Face with pt for initial transition planning/care coordination assessment. MACI GARZA introduced self and role at [facility], pt voices understanding and consents to assessment. Pt is A/O x4 and answers all questions appropriately at this time. Pt dtr and other male family member in room during assessment. Pt agreeable to continue assessment. Care providers, pharmacy, and demographics verified/updated. Admitting Dx: hypoxia PCP:[facility]: Pt denies. Preferred [facility]acy: [facility] Insurance: [employer] Prescription Benefit: yes LW/HPOA: Pt denies having a LW/DPOA and denies need for info regarding AD. LNOK: Lesvia Wolf, dtr Living Arrangements: Pt lives with dtr in a two story apt with two steps with a pole to hold onto to enter. Pt reports she is I in ADL's if she can get to the second level which has 15 steps. Dtr assists with the steps. There is a half bath on main level. Transportation: Pt drives self and denies concerns with transportation. DME/HHC/SNF: Pt has a rollator, BGM with sufficient supplies of strips and lancets. Pt states she checks her blood sugars every couple of days. Pt has bipap through [facility] at HS with 3L. Pt denies hx of HHC or SNf stays. Pt states no concerns with going home at time of dc. Pt denies need for HHC. Pt did receive tubing in the ER for her oxygen concentrator. Pt states no further concerns/needs. CM to follow. Advised pt to ask CM if any further question/concerns/needs arise, voices understanding. Pt Goal: Home Plan: Home TC to [facility] to verify O2 script, order is for 3L at hs only through [facility].
--- NOTE | 2022-03-13 10:02 | PCM.DC ---
Discharge Instructions Diet Discharge Diet: Low fat / Low cholesterol, 1800 Calorie Control Diet and 2000 mg Sodium Diet Activity Discharge Activity: Return to Normal Activity and May Not Drive Weight Bearing Status: Weight bearing as tolerated Dressing / Incision Call your doctor if you observe: Fever of 101 or Higher, Coldness, Increased Pain, Numbness or Tingling, Change in Color, Inability to urinate, Inability to have a bowel movement, Using more than 1 pad per hour, Shortness of breath, Dizziness, Fainting spells, Swelling in the ankles, Chest pain, Prolonged hiccupping, Increased palpitations (irregular heartbeat) and Calf discomfort Follow Up Care Test Results: Test results from this visit will be discussed in further detail at your follow-up appointment, if applicable. Discharge Plan Admission Admit Date/Time: 03/12/22 23:09 Primary Reason for Your Visit: Acute on chronic hypoxic respiratory failure due to pneumonia Attending Provider: Jonh Gao Primary Care Provider: Sudhakar Rojas Consulting Providers: Sebastien Wallace Discharge Orders/Prescriptions Prescriptions: New levofloxacin 500 mg tablet 500 mg PO DAILY Qty: 5 RF: 0 Continued levothyroxine 50 MCG tablet 50 mcg PO DAILY RF: 0 omeprazole 20 MG capsule 20 mg PO DAILY RF: 0 albuterol sulfate [Ventolin HFA] 1 INHALER inhaler 2 inh IH TID PRN (Reason: Shortness Of Breath) RF: 0 Flovent HFA 1 INHALER inhaler 1 inh IH BID RF: 0 oxycodone-acetaminophen [Percocet] 1 EACH tablet 1 tab PO TID PRN PRN (Reason: Pain) RF: 0 albuterol sulfate [Ventolin HFA] 1 INHALER inhaler 1 - 2 puff inhalation Q4H PRN PRN (Reason: Wheezing) Qty: 1 RF: 0 polyethylene glycol 3350 [Miralax] 17 gram Powder In Packet 17 g PO DAILY PRN PRN (Reason: stool softner) RF: 0 tizanidine 4 mg tablet 4 - 8 mg PO Q8H RF: 0 amlodipine 5 mg tablet 5 mg PO DAILY RF: 0 simvastatin 5 mg tablet 20 mg PO DAILY RF: 0 metformin 1,000 mg tablet 1,000 mg PO BID RF: 0 montelukast 10 mg Tablet 10 mg PO DAILY RF: 0 budesonide-formoterol [Symbicort] 160-4.5 mcg/actuation HFA aerosol inhaler 2 puff INHALATION BID RF: 0 glucosamine HCl 500 mg tablet 500 mg PO DAILY RF: 0 Lasix 20 mg PO DAILY PRN PRN (Reason: Edema) Qty: 0 RF: 0 Referrals / Follow Up: Keven Gant DO [STAFF PHYSICIAN] - Within 1 Month ( For acute on chronic hypoxic respiratory failure, RANDY and Obesity hypoventilation syn on CPAP) Sudhakar Rojas MD [Primary Care Provider] - Within 2 Weeks Disposition Disposition (needs filled in before D/C Order can be placed): Home, Self Care
--- NOTE | 2022-03-13 11:33 | CASEMGMT ---
Pt requires increased oxygen needs at dc. [place] [facility] [place] Pt nurse provided with a pox for pt. Portable tank taken from stock.
--- NOTE | 2022-03-13 13:30 | DS.PCM_ITS ---
Providers Date of Admission: 03/12/22 Primary Care Physician: Dr. Sudhakar Rojas MD Reason For Visit: HYPOXIA Diagnosis Discharge Diagnosis (1) Pneumonia: Status: Acute Code(s): J18.9 - Pneumonia, unspecified organism (2) Acute hypoxemic respiratory failure: Status: Acute Code(s): J96.01 - Acute respiratory failure with hypoxia (3) Diabetes: Status: Acute Code(s): E11.9 - Type 2 diabetes mellitus without complications (4) Hypercholesterolemia: Status: Acute Code(s): E78.00 - Pure hypercholesterolemia, unspecified (5) Hypothyroidism: Status: Acute Code(s): E03.9 - Hypothyroidism, unspecified (6) Hypertension: Status: Chronic Code(s): I10 - Essential (primary) hypertension Medications at Discharge Home Medications Flovent HFA 1 inh IH BID 01/09/14 albuterol sulfate [Ventolin HFA] 1 - 2 puff INHALATION Q4H PRN PRN #1 inhaler 01/09/14 albuterol sulfate [Ventolin HFA] 2 inh IH TID PRN 01/09/14 levothyroxine 50 mcg PO DAILY 01/09/14 omeprazole 20 mg PO DAILY 01/09/14 oxycodone-acetaminophen [Percocet] 1 tab PO TID PRN PRN 01/09/14 amlodipine 5 mg PO DAILY 03/12/22 budesonide-formoterol [Symbicort] 2 puff INHALATION BID 03/12/22 glucosamine HCl 500 mg PO DAILY 03/12/22 metformin 1,000 mg PO BID 03/12/22 montelukast 10 mg PO DAILY 03/12/22 polyethylene glycol 3350 [Miralax] 17 g PO DAILY PRN PRN 03/12/22 simvastatin 20 mg PO DAILY 03/12/22 tizanidine 4 - 8 mg PO Q8H 03/12/22 furosemide 40 mg PO DAILY PRN #30 tab 03/13/22 levofloxacin 500 mg PO DAILY #5 tab 03/13/22 Hospital Course Summary of Care Provided Hospital Course: Patient was admitted with acute shortness of breath and hypoxia, and bilateral leg swelling She was found 83% on room air in ED. She uses home oxygen at night and on at standing, found hypoxic into the 80s. No chest pain. She is on albuterol inhaler and Flovent inhaler at home. Denies chronic cardiac disease. She also had pain in the left popliteal region and CT angiogram was done which was negative for PE. It showed right upper, middle lobe and right lower lobe patchy infiltrate consistent with pneumonia. Patient was further admitted to [facility] floor. Patient was started on IV Levaquin and had 2 doses of IV antibiotic. Discharged on Levaquin 100 mg daily for 5 more days to complete a total of 7 days. Patient is ambulatory in home and in the community and requires home oxygen with portability. Discharge diagnosis 1. Acute on chronic hypoxic respiratory failure mostly due to RUL, RML and RLL, pneumonia with chronic RANDY/OSH. Patient oxygen and CPAP being managed by PCP. I think she never had PFT and agreed to follow-up in pulmonary clinic. Follow- up pcts in 1 month. 2. Diabetes mellitus type II?glucose in BMP is 132, reasonably well controlled. Continue home medications 3. Hypercholesterolemia?continue statin medication 4. Hypothyroidism?continue Synthroid 5. DVT prophylaxis?low molecular weight heparin Discharge medication reconciliation done. Discharge follow-up instructions completed. Discharge process discussed with the patient and all questions were answered to patient's satisfaction. Total time spent, exact 35 minutes on discharge meds reconciliation, examination, coordination of care with nurses and ancillary staff, review of imaging and blood test and discussion with the patient on follow-up instructions. Physical Exam Narrative Seen and examined on the day of discharge. Patient has chronic hypoxic respiratory failure and she uses oxygen and CPAP at night. She is morbidly obese BMI 57.4 kg/m?. Her PCP manages the oxygen and CPAP from [facility]. Physical exam General: Alert, Oriented x3, Cooperative, super morbid obesity HEENT: Atraumatic, PERRLA, EOMI, Normocephalic Oral: No Gingival or Mucosal Lesions/ Ulcerations Neck: Supple, No JVD, Negative Carotid Bruits Lungs: Air entry diminished in bilateral lung bases. No crepitation/rhonchi Cardiovascular: Regular rate, Regular Rhythm, Normal S1, Normal S2, No murmurs Abdomen: Bowel Sounds Present, Soft, Non Tender, Non-Distended : No renal angle tenderness. No suprapubic tenderness. Extremities: Bilateral lower extremity lymphedema, Capillary Refill Less than 3 Seconds Skin: No rashes, No breakdown Musculoskeletal: No Tenderness to Palpation of Joints or Extremities. ROM at knee and hip joints restricted Neurological: Cranial nerves II-XII grossly intact, DTR 2+/4 and Symmetrical, Neuro grossly intact Psych/Mental Status: Normal Affect, Appropriate Weight / BMI Weight Weight: 336 lb 6.806 oz Body Mass Index (BMI) 57.4 ABG / Lab / Microbiology Data Result Diagrams: 03/13/22 05:35 03/13/22 05:35 Laboratory: Laboratory Results - last 24 hr 03/12/22 19:42: WBC 9.9, RBC 4.46, Hgb 10.8 L, Hct 36.8 L, MCV 82.5, MCH 24.2 L, MCHC 29.3 L, RDW Std Deviation 47.1 H, RDW Coeff of Swathi 15.6 H, Plt Count 170, MPV 10.8, Immature Gran % (Auto) 0.600, Neut % (Auto) 72.2 H, Lymph % (Auto) 17.1 L, [place] % (Auto) 9.0, Eos % (Auto) 0.6, Baso % (Auto) 0.5, Absolute Neuts (auto) 7.2, Absolute Lymphs (auto) 1.69, Nucleated RBC % 0.2 03/12/22 19:42: PT 14.7, INR 1.2, APTT 30.2 03/12/22 19:42: Sodium 140, Potassium 4.3, Chloride 102, Carbon Dioxide 36.0 H, Anion Gap 2 L, BUN 11, Creatinine 0.72, Estim Creat Clear Calc 76.24, Est GFR (MDRD) Af Amer 108, Est GFR (MDRD) Non-Af 89, BUN/Creatinine Ratio 15.2, Glucose 164 H, Calcium 8.8, Total Bilirubin 0.40, AST 11 L, ALT 30, Alkaline Phosphatase 83, Troponin I High Sens < 3 L, Total Protein 6.9, Albumin 3.1 L, Globulin 3.8, Albumin/Globulin Ratio 0.8 L 03/12/22 19:42: Lactic Acid 1.4 03/12/22 19:42: B-Natriuretic Peptide 20.1 03/12/22 20:17: Urine Color Yellow, Urine Clarity Clear, Urine pH 8.0, Ur Specific [place] 1.010, Urine Protein 15 H, Urine Glucose (UA) Normal, Urine Ketones Negative, Urine Occult Blood Negative, Urine Nitrite Negative, Urine Bilirubin Negative, Urine Urobilinogen 4 H, Ur Leukocyte Esterase Negative, Urine RBC 0 SEEN, Urine WBC 0 SEEN, Ur Squamous Epith Cells 0-5 SEEN, Urine Bacteria 1+, Urine Mucus 0 SEEN 03/13/22 05:35: WBC 8.9, RBC 4.39, Hgb 10.6 L, Hct 35.7 L, MCV 81.3, MCH 24.1 L, MCHC 29.7 L, RDW Std Deviation 46.3 H, RDW Coeff of Swathi 15.6 H, Plt Count 161, MPV 11.5, Immature Gran % (Auto) 0.500, Neut % (Auto) 72.0 H, Lymph % (Auto) 16.9 L, [place] % (Auto) 9.0, Eos % (Auto) 1.0, Baso % (Auto) 0.6, Absolute Neuts (auto) 6.4, Absolute Lymphs (auto) 1.50, Nucleated RBC % 0 03/13/22 05:35: Sodium 138, Potassium 3.3 L, Chloride 98, Carbon Dioxide 34.0 H, Anion Gap 6, BUN 9, Creatinine 0.67, Estim Creat Clear Calc 81.93, Est GFR (MDRD) Af Amer 117, Est GFR (MDRD) Non-Af 97, BUN/Creatinine Ratio 13.4, Glucose 132 H, Calcium 9.2 Radiography Diagnostic Testing: Radiology Impression Chest X-Ray 03/12/22 19:48 IMPRESSION: Question of a small area of consolidation/pneumonia right lower lobe. Electronically Signed: Carl Hinton MD at 20:24 EDT , Chest CTA 03/12/22 21:08 IMPRESSION: 1. No PE or dissection. 2. Patchy areas of consolidation in the right upper and middle lobes and moderate consolidation in the right posterior costophrenic sulcus likely pneumonia. Electronically Signed: Carl Hinton MD at 21:58 EDT , D/C Instructions Discharge Diet: Low fat / Low cholesterol, 1800 Calorie Control Diet and 2000 mg Sodium Diet Weight Bearing Status: Weight bearing as tolerated Call your doctor if you observe: Fever of 101 or Higher, Coldness, Increased Pain, Numbness or Tingling, Change in Color, Inability to urinate, Inability to have a bowel movement, Using more than 1 pad per hour, Shortness of breath, Dizziness, Fainting spells, Swelling in the ankles, Chest pain, Prolonged hiccupping, Increased palpitations (irregular heartbeat) and Calf discomfort Meaningful Use Info Meaningful Use Diagnoses (Choose all that apply): None applicable Discharge Plan Admission Admit Date/Time: 03/12/22 23:09 Primary Reason for Your Visit: Acute on chronic hypoxic respiratory failure due to pneumonia Attending Provider: Jonh Gao Primary Care Provider: Sudhakar Rojas Consulting Providers: Sebastien Wallace Discharge Orders/Prescriptions Prescriptions: New levofloxacin 500 mg tablet 500 mg PO DAILY Qty: 5 RF: 0 furosemide 40 mg tablet 40 mg PO DAILY PRN (Reason: edema) Qty: 30 RF: 0 Continued levothyroxine 50 MCG tablet 50 mcg PO DAILY RF: 0 omeprazole 20 MG capsule 20 mg PO DAILY RF: 0 albuterol sulfate [Ventolin HFA] 1 INHALER inhaler 2 inh IH TID PRN (Reason: Shortness Of Breath) RF: 0 Flovent HFA 1 INHALER inhaler 1 inh IH BID RF: 0 oxycodone-acetaminophen [Percocet] 1 EACH tablet 1 tab PO TID PRN PRN (Reason: Pain) RF: 0 albuterol sulfate [Ventolin HFA] 1 INHALER inhaler 1 - 2 puff inhalation Q4H PRN PRN (Reason: Wheezing) Qty: 1 RF: 0 polyethylene glycol 3350 [Miralax] 17 gram Powder In Packet 17 g PO DAILY PRN PRN (Reason: stool softner) RF: 0 tizanidine 4 mg tablet 4 - 8 mg PO Q8H RF: 0 amlodipine 5 mg tablet 5 mg PO DAILY RF: 0 simvastatin 5 mg tablet 20 mg PO DAILY RF: 0 metformin 1,000 mg tablet 1,000 mg PO BID RF: 0 montelukast 10 mg Tablet 10 mg PO DAILY RF: 0 budesonide-formoterol [Symbicort] 160-4.5 mcg/actuation HFA aerosol inhaler 2 puff INHALATION BID RF: 0 glucosamine HCl 500 mg tablet 500 mg PO DAILY RF: 0 Discontinued Lasix 20 mg PO DAILY PRN PRN (Reason: Edema) RF: 0 Referrals / Follow Up: Keven Gant DO [STAFF PHYSICIAN] - Within 1 Month ( For acute on chronic hypoxic respiratory failure, RANDY and Obesity hypoventilation syn on CPAP) Sudhakar Rojas MD [Primary Care Provider] - Within 2 Weeks Disposition Disposition (needs filled in before D/C Order can be placed): Home, Self Care Charges/Coding Visit Charges OBSV E&M: 56205 Observation care discharge
== END 2022-03-13 14:07 | disposition home or self-care (01) ==
LOC: ED 22:21 → MS3 23:20
PROVIDERS: Admitting Provider Family Medicine; Emergency Provider Emergency Medicine; PCP Family Medicine; Visit Provider Internal Medicine
DX: J18.9 Pneumonia, unspecified organism (principal); J44.0 Chronic obstructive pulmonary disease with (acute) lower respiratory infection; J96.21 Acute and chronic respiratory failure with hypoxia; Z68.43 Body mass index [BMI] 50.0-59.9, adult; E11.9 Type 2 diabetes mellitus without complications; E78.00 Pure hypercholesterolemia, unspecified; M79.605 Pain in left leg; G47.33 Obstructive sleep apnea (adult) (pediatric); I89.0 Lymphedema, not elsewhere classified; F17.210 Nicotine dependence, cigarettes, uncomplicated; I10 Essential (primary) hypertension; E03.9 Hypothyroidism, unspecified; Z79.899 Other long term (current) drug therapy; Z79.890 Hormone replacement therapy; Z79.84 Long term (current) use of oral hypoglycemic drugs; Z99.81 Dependence on supplemental oxygen; E66.9 Obesity, unspecified
CPT/HCPCS: 36415; 71045; 71275; 80048; 80053; 81001; 83605; 83880; 84484; 85025; 85610; 85730; 87040; 87149; 87186; 93005; 94640; 96365; 96367; 96375; 99218; 99285; J7050; Q9967; A4216; G0378; J1940